=== PATIENT | male | born 1970 | race Caucasian/White ===

== ENCOUNTER 2016-06-30 19:58 | Emergency (ER) | payer OTHER ==
[2016-06-30] MEDS ORDERED: GLUCAGON 1 MG/ML VIAL IVP STA (20:20)
--- NOTE | 2016-06-30 20:30 | ED ---
General Adult HPI <Evangelista Pinzon - Last Filed: 06/30/16 23:30> - General Source: patient, RN notes reviewed Mode of arrival: ambulatory Limitations: no limitations <Aminah Mcguire - Last Filed: 07/01/16 05:12> - General Stated complaint: FB in throat Time Seen by Provider: 06/30/16 20:05 - History of Present Illness Initial comments: Patient is a 46-year-old male with chief complaint of a foreign body in his lower esophagus. Patient reports that he was eating roast beef earlier tonight and feels that it is stuck at the esophageal junction. Patient reports happened to him in the past. Last meal had his esophagus dilated was approximately 12 years ago. He reports that he has a history of esophageal strictures. He states that he does take medication for GERD. Patient reports that he ate roast beef approximately 2 hours ago. He's tried to have small sips of water however the food bolus will not pass. Patient reports that in the previous times he has had a food bolus stuck in his esophagus it did not improve with IV medications. Patient has had a have a scope to remove the foreign body in the past. Patient denies any respiratory distress. Patient reports that he did spit up slightly as he is not able to hold fluids down past the esophagus bolus.Patient denies any recent fever, chills, shortness of breath , chest pain, back pain, abdominal pain, nausea vomiting, numbness or tingling, dysuria or hematuria, constipation or diarrhea, headaches or visual changes, or any other current symptoms (Aminah Mcguire) - Related Data Home Medications Medication Instructions Recorded Confirmed Multivitamin [Multivitamins Adult 1 tab PO DAILY 06/30/16 06/30/16 Gummies] Allergies Allergy/AdvReac Type Severity Reaction Status Date / Time kiwi Allergy Unknown Verified 06/30/16 20:17 raw vegetable Allergy Unknown Verified 06/30/16 20:17 tree nut [Nut] Allergy Unknown Verified 06/30/16 20:17 RAW FRUIT Allergy Unknown Uncoded 06/30/16 20:17 Review of Systems ROS Other: All systems not noted in ROS Statement are negative. <Evangelista Pinzon - Last Filed: 06/30/16 23:30> ROS Other: All systems not noted in ROS Statement are negative. <Aminah Mcguire - Last Filed: 07/01/16 05:12> ROS Statement: Those systems with pertinent positive or pertinent negative responses have been documented in the HPI. Past Medical History Additional Past Medical History / Comment(s): esophageal strictures with dilation History of Any Multi-Drug Resistant Organisms: None Reported Past Surgical History: No Surgical Hx Reported Past Psychological History: No Psychological Hx Reported Smoking Status: Never smoker Past Alcohol Use History: Occasional Past Drug Use History: None Reported <Aminah Mcguire - Last Filed: 07/01/16 05:12> General Exam <Evangelista Pinzon - Last Filed: 06/30/16 23:30> Limitations: no limitations General appearance: alert, in no apparent distress Head exam: Present: atraumatic, normocephalic, normal inspection Eye exam: Present: normal appearance, PERRL, EOMI. Absent: scleral icterus, conjunctival injection, periorbital swelling ENT exam: Present: normal exam, mucous membranes moist Neck exam: Present: normal inspection. Absent: tenderness, meningismus, lymphadenopathy Respiratory exam: Present: normal lung sounds bilaterally. Absent: respiratory distress, wheezes, rales, rhonchi, stridor Cardiovascular Exam: Present: regular rate, normal rhythm, normal heart sounds. Absent: systolic murmur, diastolic murmur, rubs, gallop, clicks GI/Abdominal exam: Present: soft, normal bowel sounds. Absent: distended, tenderness, guarding, rebound, rigid Extremities exam: Present: normal inspection, full ROM, normal capillary refill. Absent: tenderness, pedal edema, joint swelling, calf tenderness Back exam: Present: normal inspection Neurological exam: Present: alert, oriented X3, CN II-XII intact Psychiatric exam: Present: normal affect, normal mood Skin exam: Present: warm, dry, intact, normal color. Absent: rash <Aminah Mcguire - Last Filed: 07/01/16 05:12> - General Exam Comments Initial Comments: Patient is a well-appearing 46-year-old male. He does not appear to be any acute distress. (Aminah Mcguire) Course <Evangelista Pinzon - Last Filed: 06/30/16 23:30> <Aminah Mcguire - Last Filed: 07/01/16 05:12> Vital Signs 02/04/17 02/04/17 02/04/17 20:19 20:56 21:38 Temperature 98.1 F 97.5 F L Pulse Rate 75 70 Respiratory 18 16 16 Rate Blood Pressure 130/79 123/57 O2 Sat by Pulse 94 L 94 L Oximetry 06/30/16 06/30/16 22:32 23:31 Temperature Pulse Rate 74 73 Respiratory 16 16 Rate Blood Pressure 124/74 118/76 O2 Sat by Pulse 98 97 Oximetry - Reevaluation(s) Reevaluation #1: 06/30/16 21:03 Patient was reevaluated at this time after the glucagon and still feels the foreign body. Patient is taking small sips of water but has had no relief of his symptoms. At this time I will contact Dr. Pinzon next contact GI's specialist. (Aminah Mcguire) Reevaluation #2: 06/30/16 21:22 Patient was evaluated by Dr. Pinzon. Dr. Hayden was contacted this time for endoscopy to remove the foreign body in esophagus. (Aminah Mcguire) Reevaluation #3: 06/30/16 21:26 I did personally examine the patient [id number] and did discuss the findings with him. He did feel the past the food bolus with IV glucagon in hot water. He states she's had this before he was dilated in the past. He denies any chest pain nausea vomiting or other symptoms at this time. I did discuss the case with him and his as well as with Dr. Cage from GI and Dr. Ellis from anesthesia. The end oh team has been called in. Patient will be scoped in the emergency department for evaluation and treatment of the esophageal foreign body/food bolus. 06/30/16 21:27 Patient's lungs are clear heart was regular abdomen positive bowel sounds soft nontender. The oropharynx is also clear. (Evangelista Pinzon) Reevaluation #4: 06/30/16 23:30 Reevaluation the patient after the procedure reveals he is awake alert oriented 3 and able swallow without difficulty. Discharged with follow-up with Dr. Cage. (Evangelista Pinzon) Medical Decision Making - Lab Data Result diagrams: 06/30/16 20:50 06/30/16 20:50 <Evangelista Pinzon - Last Filed: 06/30/16 23:30> - Lab Data Result diagrams: 06/30/16 20:50 06/30/16 20:50 <Aminah Mcguire - Last Filed: 07/01/16 05:12> - Medical Decision Making Patient is a pleasant 46-year-old male with chief complaint of a roast beef foreign body in his distal esophagus. Patient reports that in the past and is not improved with IV medications. Patient will be given IV glucagon in an attempt to sit warm water. Patient was reevaluated and the foreign body has not diminished. Anesthesia team will be assembled and patient will undergo endoscopy. Patient tolerated the procedure well and the food bolus was removed. Patient has follow-up appointment with the GI specialist Dr. Hayden in regards to further esophageal dilation. Patient has no other symptoms at this time and feels well. Patient will like to be discharged home. Return parameters were discussed. (Aminah Mcguire) - Lab Data Lab Results 06/30/16 06/30/16 Range/Units 20:50 20:50 WBC 9.7 (3.8-10.6) k/uL RBC 4.93 (4.30-5.90) m/uL Hgb 14.5 (13.0-17.5) gm/dL Hct 43.3 (39.0-53.0) % MCV 87.9 (80.0-100.0) fL MCH 29.3 (25.0-35.0) pg MCHC 33.4 (31.0-37.0) g/dL RDW 13.5 (11.5-15.5) % Plt Count 286 (150-450) k/uL Neutrophils % (Manual) 54.0 % Lymphocytes % (Manual) 16.0 % Monocytes % (Manual) 4.0 % Eosinophils % (Manual) 26.0 % Neutrophils # (Manual) 5.2 (1.3-7.7) k/uL Lymphocytes # (Manual) 1.6 (1.0-4.8) k/uL Monocytes # (Manual) 0.4 (0-1.0) k/uL Eosinophils # (Manual) 2.5 H (0-0.7) k/uL Nucleated RBCs 0 (0-0) /100 WBC Manual Slide Review Performed RBC Morphology Normal Sodium 143 (137-145) mmol/L Potassium 4.1 (3.5-5.1) mmol/L Chloride 107 (98-107) mmol/L Carbon Dioxide 24 (22-30) mmol/L Anion Gap 12 mmol/L BUN 10 (9-20) mg/dL Creatinine 0.90 (0.66-1.25) mg/dL Est GFR (MDRD) Af Amer >60 (>60 ml/min/1.73 sqM) Est GFR (MDRD) Non-Af >60 (>60 ml/min/1.73 sqM) Glucose 95 (74-99) mg/dL Calcium 9.2 (8.4-10.2) mg/dL Disposition <Evangelista Pinzon - Last Filed: 06/30/16 23:30> Time of Disposition: 23:28 <Aminah Mcguire - Last Filed: 07/01/16 05:12> Clinical Impression: Foreign body in throat Disposition: HOME SELF-CARE Condition: Good Instructions: Esophageal Foreign Body (ED) Additional Instructions: instructed to follow-up with primary care physician. Return to the [facility] if any alarming signs or symptoms occur. Referrals: None,Stated [Primary Care Provider] - 1-2 days
[2016-06-30 20:57] VITALS: RESP 16
[2016-06-30 21:05] LABS: CH 29.8; HCT 43.3 % (39.0-53.0); HDW 2.61; HGB 14.5 gm/dL (13.0-17.5); MCH 29.3 pg (25.0-35.0); MCHC 33.4 g/dL (31.0-37.0); MCV 87.9 fL (80.0-100.0); Mean Platelet Volume 7.9; RBC 4.93 m/uL (4.30-5.90); RDW 13.5 % (11.5-15.5); WBC 9.7 k/uL (3.8-10.6); WBC (Perox) 10.35
[2016-06-30 21:13] LABS: Anion Gap 12 mmol/L; Blood Urea Nitrogen 10 mg/dL (9-20); Calcium 9.2 mg/dL (8.4-10.2); Carbon Dioxide 24 mmol/L (22-30); Chloride 107 mmol/L (98-107); Glucose 95 mg/dL (74-99); Non-African American GFR(MDRD) >60 (>60 ml/min/1.73 sqM); Potassium 4.1 mmol/L (3.5-5.1); Sodium 143 mmol/L (137-145)
[2016-06-30 21:17] LABS: Add Differential Manual Differential
[2016-06-30 21:24] LABS: Manual Review Performed; Nucleated Red Blood Cells 0 /100 WBC (0-0); RBC Morphology Normal; Total Cells Counted 100
[2016-06-30 21:39] VITALS: TEMP 97.5
[2016-06-30] MEDS ORDERED: LACTATED RINGERS 1,000 ML IV ONE (22:33)
[2016-06-30] MEDS ORDERED: PROPOFOL 10 MG/ML 20 ML VIAL IV ONE (22:49)
[2016-06-30 23:33] VITALS: BP 118/76; PULSE 73
--- NOTE | 2016-07-01 12:46 | PCN ---
DATE OF PROCEDURE: 06/30/2016 PROCEDURE PERFORMED: Esophagogastroduodenoscopy and removal of esophageal foreign body. PREOPERATIVE DIAGNOSIS: Obstructive dysphagia. POSTOPERATIVE DIAGNOSES: 1. Impacted piece of meat in the distal esophagus removed by capturing it with the snare and withdrawing with the endoscope and restarting the exam. 2. Corrugated esophagus consistent with eosinophilic esophagitis. 3. Esophageal stricture, just allowed the advancement of the endoscope, essentially dilated with the passing of the endoscope. Preparation and sedation were provided by Anesthesia. BRIEF CLINICAL HISTORY: The patient is a 46-year-old male who presented with obstructive dysphagia that started 4 or 5 hours prior, was eating beef. The patient apparently had similar episodes in the past and he recalled that I did an upper endoscopy at the time of colonoscopy 4 or 5 years ago and was dilated and has been having gradually progressive symptoms since that time. DESCRIPTION OF PROCEDURE: With the patient on his left lateral decubitus position and after informed consent and adequate sedation, I passed the [id number] video upper endoscope through the cricopharyngeus down the esophagus. The esophagus had significant amount of secretions and food debris which were suctioned. Then the obstructing piece of meat was seen lodged in the distal esophagus. The esophagus showed corrugation consistent with eosinophilic esophagitis. I was able to capture the piece of meat with the snare and pull it out by withdrawing the endoscope. I reintroduced the endoscope thinking that there would be any remainder part of meat left, but there was none and the whole piece was removed in the first attempt. There was a stricture at the level of the GE junction that just allowed the advancement of the endoscope and essentially was dilated with the manipulation of the endoscope subsequently. The stomach and duodenum showed no ulcers. There was some duodenitis. There was a lot of secretions and food debris in the stomach, no biopsies were taken and I did not perform any additional dilation. The patient tolerated the procedure well. PLAN: Will keep him on clear liquids for the rest of the night and then he can resume his diet tomorrow as tolerated. I would like to see him in followup in the office and based on his condition, we could consider repeat the endoscopy for biopsies or I treat him as eosinophilic esophagitis if I find that we had to obtain biopsies in the past that confirm the diagnosis.
== END 2016-06-30 23:36 | disposition home or self-care (01) ==
LOC: EC 19:58
DX: T18.128A Food in esophagus causing other injury, initial encounter (principal); X58.XXXA Exposure to other specified factors, initial encounter; K21.9 Gastro-esophageal reflux disease without esophagitis; F17.210 Nicotine dependence, cigarettes, uncomplicated; Z87.19 Personal history of other diseases of the digestive system
CPT/HCPCS: 36415; 80048; 85025; 43247; 99283; 96374; J1610; J2704

== ENCOUNTER 2017-06-08 16:03 | Emergency (ER) | payer MEDICAID, OTHER ==
[2017-06-08] MEDS ORDERED: HYDROmorphone 1 MG/ML 1 ML SYRINGE IVP STA ×2 (17:06→18:53)
[2017-06-08] MEDS ORDERED: ONDANSETRON 4 MG/2 ML VIAL IVP STA (17:06)
[2017-06-08] MEDS ORDERED: HYDROmorphone 2 MG/ML 1 ML SYRINGE IVP STA (17:08)
--- NOTE | 2017-06-08 17:20 | ED ---
Upper Extremity HPI - General Chief Complaint: Extremity Injury, Upper Stated Complaint: Shoulder injury Time Seen by Provider: 06/08/17 16:57 Source: patient, RN notes reviewed Mode of arrival: ambulatory Limitations: no limitations - History of Present Illness Initial Comments: This is a 47-year-old male who presents to the emergency department with chief complaint of left shoulder injury. Patient states that approximately 2 PM this afternoon he was ice skating in [place]. He fell while ice skating and landed on his left side. He landed onto his left shoulder and currently complains of severe shoulder pain. Patient states he is unable to move the shoulder due to the pain. Patient drove from [place] to his home in [place] and his transported him to the emergency department. Patient also presents with a laceration to the left forehead. He denies any other injuries. He denies any head trauma or loss of consciousness. Denies fever, chills, chest pain, shortness of breath, abdominal pain, nausea or vomiting, constipation or diarrhea, dysuria or hematuria, numbness or tingling, headache or vision changes. - Related Data Previous Rx's Medication Instructions Recorded HYDROcodone/APAP 5-325MG [[place] 5] 1 each PO Q6HR PRN #12 tab 06/08/17 Ibuprofen 600 mg PO Q6HR #30 tablet 06/08/17 Allergies Allergy/AdvReac Type Severity Reaction Status Date / Time kiwi Allergy Unknown Verified 06/08/17 16:55 raw vegetable Allergy Unknown Verified 06/08/17 16:55 tree nut [Nut] Allergy Unknown Verified 06/08/17 16:55 RAW FRUIT Allergy Unknown Uncoded 06/08/17 16:26 Review of Systems ROS Statement: Those systems with pertinent positive or pertinent negative responses have been documented in the HPI. ROS Other: All systems not noted in ROS Statement are negative. Past Medical History Additional Past Medical History / Comment(s): esophageal strictures with dilation History of Any Multi-Drug Resistant Organisms: None Reported Past Surgical History: No Surgical Hx Reported Past Psychological History: No Psychological Hx Reported Smoking Status: Never smoker Past Alcohol Use History: Occasional Past Drug Use History: None Reported General Exam - General Exam Comments Initial Comments: General: Awake and alert, well-developed; appears to be in pain. HEENT: Head normocephalic. Approximately 3.0 cm vertical linear laceration superior to left eyebrow. 1.0 cm linear laceration at left lateral eye. No active bleeding. Pupils are equal, round and reactive to light. Extraocular movements intact. Oropharynx moist without erythema or exudate. Neck: Supple. Normal ROM. Cardiovascular: Regular rate and rhythm. No murmurs, rubs or gallops. Chest symmetrical. Respiratory: Lungs clear to auscultation bilaterally. No wheezes, rales or rhonchi. Normal respiratory effort with no use of accessory muscles. Musculoskeletal: Limited range of motion of left shoulder due to pain. Patient has full active range of motion of the left elbow. Obvious deformity at the acromioclavicular joint and is tender on palpation. Sensation is intact. Radial pulses are 2+ equal and palpable bilaterally. Skin: [place], warm and dry without rashes. Neurological: Alert and oriented x3. CN II-XII grossly intact. Speech is fluent and answers are appropriate. No focal neuro deficits. Psychiatric: Normal mood and affect. No overt signs of depression or anxiety noted. Limitations: no limitations Course Vital Signs 06/08/17 16:23 Temperature 98.4 F Pulse Rate 80 Respiratory 20 Rate Blood Pressure 164/95 O2 Sat by Pulse 99 Oximetry Procedures - Laceration Laceration #1 Consent Obtained: verbal consent Indication: laceration Site: face (left forehead ) Size (cm): 3 Description: linear Depth: simple, single layer Anesthetic Used: lidocaine 1% Anesthesia Technique: local infiltration Amount (mls): 3 Pre-repair: wound explored, irrigated extensively, deep structures intact Type of Sutures: nylon Size of Sutures: 6-0 Number of Sutures: 5 Technique: simple, interrupted Patient Tolerated Procedure: well, no complications Laceration #2 Consent Obtained: verbal consent Indication: laceration Site: face (left lateral eye ) Size (cm): 1 Description: linear Anesthetic Used: lidocaine 1% Anesthesia Technique: local infiltration Amount (mls): 1 Pre-repair: wound explored, irrigated extensively, deep structures intact Type of Sutures: nylon Size of Sutures: 6-0 Number of Sutures: 2 Technique: simple, interrupted Patient Tolerated Procedure: well, no complications Medical Decision Making - Medical Decision Making This is a 47-year-old male who presents to emergency department with chief complaint of left shoulder injury. X-ray revealed a left acromioclavicular joint separation. Patient was given pain medication and a sling was placed. He tolerated well and is in no acute distress. He is to follow up with orthopedics as soon as possible. He will be provided with pain medication prescriptions. Patient also sustained two lacerations to the left forehead. Sutures were placed and he tolerated well without complication. Recommended removal in 5 days. Patient is in agreement with plan and voices understanding. All questions answered. - Radiology Data Radiology results: report reviewed X-ray left shoulder: No acute fracture or dislocation. X-ray left acromioclavicular joint: Left sided acromioclavicular joint separation is noted which is unchanged with and without weights. Disposition Clinical Impression: Acromioclavicular joint separation Disposition: HOME SELF-CARE Condition: Good Instructions: Acromioclavicular Separation (ED) Additional Instructions: Please follow up with [facility], orthopedics as soon as possible. Please continue to wear sling. Please have sutures removed in 5 days. Please follow up with primary doctor in 1-2 days. Return to ED if any worsening of symptoms or any concerns arise. Please take medications as prescribed. 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
--- NOTE | 2017-06-08 17:34 | XR ---
EXAMINATION TYPE: XR shoulder complete LT DATE OF EXAM: 06/08/2017 CLINICAL HISTORY: Fall on ice today. TECHNIQUE: Three views of the left shoulder are obtained. COMPARISON: None. FINDINGS: There is no acute fracture/dislocation evident in the left shoulder. The acromioclavicula r and glenohumeral joint spaces appear within normal limits. The visualized ribs are intact and unre markable. IMPRESSION: There is no acute fracture or dislocation in the left shoulder.
--- NOTE | 2017-06-08 18:00 | XR ---
Examination: Acromioclavicular joint HISTORY: Left shoulder pain. TECHNIQUE: 3 views of both acromioclavicular joints were obtained with and without weights. FINDINGS: Single AP view of both acromioclavicular joints was obtained as well as additional views wi th and without weights. There is acromioclavicular separation of the left acromioclavicular joint. Me asurement between the coracoid process and the right clavicle is 10 mm. The distance between the left coracoid process and left clavicle is 15 mm. These measurements are unchanged with weights. IMPRESSION: Left-sided acromioclavicular separation is noted which is unchanged with and without weights.
[2017-06-08] MEDS ORDERED: HYDROmorphone 0.5 MG/0.5 ML SYRINGE IVP STA (18:54)
[2017-06-08 19:17] VITALS: RESP 18; TEMP 98
[2017-06-08 19:23] VITALS: BP 123/75; PULSE 77
== END 2017-06-08 19:35 | disposition home or self-care (01) ==
LOC: EC 16:03
DX: S43.102A Unspecified dislocation of left acromioclavicular joint, initial encounter (principal); S01.81XA Laceration without foreign body of other part of head, initial encounter; Z91.018 Allergy to other foods; V00.211A Fall from ice-skates, initial encounter; Y93.21 Activity, ice skating
CPT/HCPCS: 73030; 73050; 99283; 12013; 96374; 96375; 96376; J1170 ×2; J2405